=== PATIENT | female | born 1990 | race Two or more races ===

== ENCOUNTER → 2018-12-23 | Outpatient (CLI) | payer OTHER | END | disposition home or self-care (01) | LOC: PRENATAL 14:49 | DX: O34.42 Maternal care for other abnormalities of cervix, second trimester (principal) ==

== ENCOUNTER 2019-04-15 15:30 | Inpatient (IN) | payer OTHER ==
[~2019-04-15] VITALS: Ht 167.6 cm; Wt 3.2 kg
[2019-04-29] MEDS ORDERED: PRENATAL TABLE1 EAC1 PO (08:34)
[2019-05-02] MEDS ORDERED: CODE1TAB37 PO (10:11)
[2019-05-02] MEDS ORDERED: NAPROXEN500 MG PO (10:12)
== END 2019-05-02 11:51 | DRG 787 ==
LOC: OB/GYN 15:30 → O/R 15:30 → LDR 04-29 06:07 → OB/GYN 04-29 06:07
PROVIDERS: ADMIT Obstetrics & Gynecology
PROC: 4A033R1 Measurement of Arterial Saturation, Peripheral, Percutaneous Approach (ICD-10-PCS; 2019-04-29)
PROC: 4A1HXCZ Monitoring of Products of Conception, Cardiac Rate, External Approach (ICD-10-PCS; 2019-04-29)
PROC: 10D00Z1 Extraction of Products of Conception, Low, Open Approach (ICD-10-PCS; principal; 2019-04-29 18:00)
DX: O62.1 Secondary uterine inertia (principal); O41.03X0 Oligohydramnios, third trimester, not applicable or unspecified; Z3A.38 38 weeks gestation of pregnancy; Z37.0 Single live birth